=== PATIENT | male | born 1995 | race American Indian/Alaskan Native ===

== ENCOUNTER 2019-02-14 19:21 | Emergency (ER) | payer SELFPAY ==
[2019-02-14] MEDS ORDERED: ACETAMINOPHEN 325 MG TAB PO ONE (20:06)
--- NOTE | 2019-02-14 20:50 | XRay Report ---
CHEST 2 VIEWS INDICATION / CLINICAL INFORMATION: cough and fever. COMPARISON: None available. FINDINGS: SUPPORT DEVICES: None. HEART / MEDIASTINUM: No significant abnormality. LUNGS / PLEURA: No significant pulmonary or pleural abnormality. No pneumothorax. ADDITIONAL FINDINGS: No significant additional findings. IMPRESSION: 1. No acute findings. Signer Name: Porfirio Amanda MD Signed: 02/14/2019 8:46 PM Workstation Name: [id number]
--- NOTE | 2019-02-14 23:52 | Emergency Department Report ---
Minor Respiratory - HPI Chief Complaint: Upper Respiratory Infection Stated Complaint: CHEST, BODY, AND PAIN IN EYES Time Seen by Provider: 02/14/19 22:34 Duration: 1 Day Pain Location: Nose Severity: moderate Minor Respiratory: Yes Rhinorrhea, Yes Sore Throat, Yes Able to Tolerate Fluids, Yes Cough, Yes Sick Contacts, Yes Chest Pain, Yes Fever, No Ear Pain, No Hemopty sis, No Shortness of Breath Other History: This is a 23-year-old -[place] male who presents to the emergency room with chills, cough, chest pain since last night. Patient states he is currently not taking anything for symptomatic relief. He denies nausea, vomiting, abdominal pain, diarrhea, headache, shortness of breath. ED Review of Systems ROS: Stated complaint: CHEST, BODY, AND PAIN IN EYES Other details as noted in HPI Constitutional: chills, fever ENT: throat pain, congestion. denies: ear pain Respiratory: cough. denies: shortness of breath, wheezing Cardiovascular: denies: chest pain, palpitations Gastrointestinal: denies: abdominal pain, nausea, diarrhea Musculoskeletal: myalgia. denies: back pain, joint swelling, arthralgia Skin: denies: rash, lesions Neurological: denies: headache, weakness, paresthesias Psychiatric: denies: anxiety, depression ED Past Medical Hx - Past Medical History Previous Medical History?: Yes Hx Asthma: Yes - Surgical History Past Surgical History?: No - Social History Smoking Status: Never Smoker Substance Use Type: None - Medications Home Medications: Home Medications Medication Instructions Recorded Confirmed Last Taken Type Benzonatate [Tessalon Perles] 100 mg PO Q8HR PRN #30 capsule 02/14/19 Unknown Rx Fluticasone [Flonase] 1 spray NS QDAY #1 bottle 02/14/19 Unknown Rx Loratadine [Claritin] 10 mg PO DAILY #30 tablet 02/14/19 Unknown Rx Minor Respiratory Exam - Exam General: Vital signs noted. No distress. Alert and acting appropriately. HEENT: Yes Moist Mucous Membranes, Yes Rhinorrhea (turbinates congested with clear discharge), No Pharyngeal Erythema, No Pharyngeal Exudates, No Conjuctival Injection, No Frontal Tenderness, No Maxillary Tenderness Ear: Neither TM Bulge, Neither TM Erythema, Neither EAC Pain, Neither EAC Discharge Neck: Yes Supple, No Adenopathy Lungs: Yes Good Air Exchange, No Wheezes, No Ronchi, No Stridor, No Cough, No Labored Respirations, No Retractions, No Use of Accessory Muscles, No Other Abnormal Lung Sounds Heart: Yes Regular, No Murmur Abdomen: Yes Normal Bowel Sounds, No Tenderness, No Peritoneal Signs Skin: No Rash, No Edema Neurologic: Alert and oriented, no deficits. Musculoskeletal: Unremarkable. ED Course Vital Signs 02/14/19 19:34 Temperature 100.9 F H Pulse Rate 97 H Respiratory 20 Rate Blood Pressure 130/84 O2 Sat by Pulse 98 Oximetry Vital Signs 02/14/19 02/14/19 19:34 23:58 Temperature 100.9 F H 99.1 F Pulse Rate 97 H 80 Respiratory 20 16 Rate Blood Pressure 130/84 Blood Pressure 135/78 [Right] O2 Sat by Pulse 98 98 Oximetry ED Medical Decision Making - Radiology Data Radiology results: report reviewed CHEST 2 VIEWS INDICATION / CLINICAL INFORMATION: cough and fever. COMPARISON: None available. FINDINGS: SUPPORT DEVICES: None. HEART / MEDIASTINUM: No significant abnormality. LUNGS / PLEURA: No significant pulmonary or pleural abnormality. No pneumothorax. ADDITIONAL FINDINGS: No significant additional findings. IMPRESSION: 1. No acute findings. - Medical Decision Making 23 y.o. male that presents with URI symptoms. Patient examined by me and stable. No distress noted. Given analgesics for fever. Chest xray has been obtained with no acute cardiopulmonary findings. Patient notified of x-ray results with no questions. This is most likely an virus. I don't believe it is bacterial infection. Instructed to start taken Tylenol and ibuprofen for fever control and pain. Start benzonatate, Flonase, and Claritin. Discharged home stable. Encouraged to do supportive care for URI. Follow up with Primary Care Provider in 2-3 days. Critical care attestation.: If time is entered above; I have spent that time in minutes in the direct care of this critically ill patient, excluding procedure time. ED Disposition Clinical Impression: Cough in adult, Fever and chills, Acute viral syndrome, Upper respiratory infection, acute Disposition: DC-01 TO HOME OR SELFCARE Is pt being admited?: No Condition: Stable Instructions: Viral Syndrome (ED), Cold Symptoms (ED) Additional Instructions: Increase fluid intake and rest. Wash hands frequently. Continue taking Tylenol or ibuprofen to control fever. F/U with Primary Care Provider. Return to ER if fever, SOB, or difficulty breathing after 48 hours of supportive care. Prescriptions: Loratadine [Claritin] 10 mg PO DAILY #30 tablet Fluticasone [Flonase] 1 spray NS QDAY #1 bottle Benzonatate [Tessalon Perles] 100 mg PO Q8HR PRN #30 capsule PRN Reason: Cough Referrals: [facility] [Outside] - 3-5 Days [facility] [Outside] - 3-5 Days [facility] [Outside] - 3-5 Days Forms: Work/School Release Form(ED) Time of Disposition: 23:58
[2019-02-14 23:59] VITALS: BP 135/78
== END 2019-02-15 00:23 | disposition home or self-care (01) ==
LOC: ED 19:21
DX: J06.9 Acute upper respiratory infection, unspecified (principal); B34.9 Viral infection, unspecified; J45.909 Unspecified asthma, uncomplicated; Z79.899 Other long term (current) drug therapy
CPT/HCPCS: 71046